=== PATIENT | male | born 1965 | race African-American/Black ===

== ENCOUNTER 2016-11-22 23:30 | Observation (INO) | payer OTHER ==
[~2016-11-22] VITALS: Ht 190.5 cm; Wt 145.4 kg
[~2016-11-22 23:30] MED LIST: AMOXICILLIN500 M; ANUSOL HC25 MG/SUPP PR; ANUSOL-HC25 MG/SUPP RC; ASPIRIN EC81 M1 PO; ASPIRIN325 MG; BENADRYL25 MG; COLACE100 M1 PO; COLACE100 MG PO; IBUPAIN-200200 MG PO; IBUPROFEN200 M1 PO; IBUPROFEN200 M3 PO; KLOR-CON 1010 ME1 PO; LIPITOR20 M1 PO; LISINOPRIL-HC PO; LISINOPRIL-HCT1 EAC2 PO; LOPRE25 PO; METFORMIN HCL1000 M2 PO; METFORMIN HCL500 M2 PO; METOPROLOL TART25 MG PO; NORCO 5/325 TAB1 TAB PO; NORVASC5 M2 PO; NORVASC5 MG PO; PEPCID20 MG PO; PRINIVIL5 MG; TYLENOL W/CODEI1 TAB PO; ZOLOFT50 M1 PO
[2016-11-23 00:15] LABS: BASO % 0.1 % (0-2); EOS % 1.8 % (0-7); EOSINOPHIL ABSOLUTE COUNT 0.1 tho/cmm (0.0-0.7); HCT-HEMATOCRIT 38.8 % (36.0-53.5); HGB-HEMOGLOBIN 12.9 gm/dl (13.5-17.0); IMMATURE GRANULOCYTES ABSOLUTE 0.01 tho/cmm (0-0.03); IMMATURE GRANULOCYTES PERCENT 0.1 % (0-0.3); LYMPH % 30.9 % (20-45); LYMPH ABSOLUTE COUNT 2.2 tho/cmm (0.8-4.5); MCH (MEAN CORPUSCULAR HGB) 27.2 pg (28.0-32.0); MCHC MEAN CORPUSCULAR HGB CONC 33.2 % (32.0-36.0); MCV (MEAN CELL VOLUME) 81.7 fl (82.0-96.0); MEAN PLATELET VOLUME 9.6 cmc (9.4-12.4); MONO % 6.1 % (0-12); MONOCYTE ABSOLUTE COUNT 0.4 tho/cmm (0.0-1.2); NEUTROPHIL ABSOLUTE COUNT 4.4 tho/cmm (1.6-8.0); NEUTROPHIL-AUTOMATED 4.4 tho/cmm (1.6-8.0); PLATELET COUNT 251 tho/cmm (150-450); RED BLOOD COUNT 4.75 mil/cmm (4.40-5.70); RED CELL DISTRIBUTION WIDTH 13.6 % (12.4-16.4); WHITE BLOOD COUNT 7.2 tho/cmm (4.0-10.0)
[2016-11-23 00:28] LABS: ANION GAP 11 mmol/L (0-20); BLOOD UREA NITROGEN 8 mg/dl (6-24); CALCIUM 8.3 mg/dl (8.5-10.5); CARBON DIOXIDE-VENOUS 27 mmol/L (22-32); CHLORIDE 103 mmol/l (96-110); CREATININE 0.89 mg/dl (0.60-1.30); GLUCOSE 112 mg/dL (70-110); SODIUM 138 mmol/L (135-145); eGFR VALUE FOR BLACK >90 mL/Min
[2016-11-23 00:32] LABS: POTASSIUM 3.3 mmol/L (3.7-5.1)
[2016-11-23 05:25] LABS: CHOLESTEROL 143 mg/dl (120-200); HDL CHOLESTEROL 49 mg/dl (40-60); LDL CHOLESTEROL 65 mg/dl (0-99); TRIGLYCERIDES 149 mg/dl (<149); VLDL 30 mg/dl (0-30)
== END 2016-11-23 14:15 ==
LOC: EDMED 23:30 → EMR2 11-23 01:47 → PCUB 11-23 02:50
PROVIDERS: Emergency Medicine; Nurse Practitioner Family; Physician Assistant; ADMIT Internal Medicine Cardiovascular Disease
DX: R07.89 Other chest pain (principal); I10 Essential (primary) hypertension; E11.9 Type 2 diabetes mellitus without complications; E66.9 Obesity, unspecified; Z68.37 Body mass index [BMI] 37.0-37.9, adult; Z79.82 Long term (current) use of aspirin; Z79.899 Other long term (current) drug therapy; Z87.891 Personal history of nicotine dependence; Z79.84 Long term (current) use of oral hypoglycemic drugs
CPT/HCPCS: A9500; C8929